=== PATIENT | male | born 1955 | race Caucasian/White ===

== ENCOUNTER → 2021-12-31 | Outpatient (CLI) | payer BC ==
[~2021-12-31] MED LIST: ASPIRIN EC81 MG PO; CENTRUM SILVER1 EAC1 PO; COZAAR50 MG PO; JANUVIA100 MG PO; LIDODERM PATCH 51 EA TOP; LIPITOR20 MG PO; PERCOCET 10-321 EACH PO; PRILOSEC20 MG PO; SYNTHROID75 MCG PO; TOPROL XL50 MG PO; XARELTO10 MG PO; ZYLOPRIM300 MG PO
== END ==
LOC: KOH-I 13:45
DX: M75.121 Complete rotator cuff tear or rupture of right shoulder, not specified as traumatic (principal); M19.011 Primary osteoarthritis, right shoulder; S43.431A Superior glenoid labrum lesion of right shoulder, initial encounter
CPT/HCPCS: 73221

== ENCOUNTER → 2022-01-12 | Outpatient (CLI) | payer BC ==
[~2022-01-12] VITALS: Ht 180.3 cm; Wt 126.6 kg
[~2022-01-12] MED LIST changes: +AMLODIPINE BES2.5 MG PO; +AVODART0.5 MG PO; +CYANOCOBAL1000 MCG/1 INJ; +DOXYCYCLINE MO100 MG PO; +GABAPENTIN400 MG PO; +JARDIANCE25 MG PO; +NITROGLYCERIN0.4 MG SL; +PROTONIX40 MG PO; +Vitamin D3; +Zinc
[2022-01-12 10:31] LABS: HEMOGLOBIN 15.5 gm/dl (14.0-17.5); RED BLOOD COUNT 5.35 M/UL (4.20-5.50); WHITE BLOOD COUNT 10.3 K/UL (4.5-11.0)
[2022-01-12 11:08] LABS: BUN/CREATININE RATIO 25 (0-10)
== END ==
LOC: EDSTATUS 08:00 → OPSV2 08:00
PROVIDERS: Orthopaedic Surgery
DX: Z01.818 Encounter for other preprocedural examination (principal); M75.101 Unspecified rotator cuff tear or rupture of right shoulder, not specified as traumatic
CPT/HCPCS: 36415; 71046; 80053; 85025; 93005

== ENCOUNTER → 2022-01-15 | Outpatient (CLI) | payer BC ==
[2022-01-15 14:29] LABS: BUN/CREATININE RATIO 24 (0-10)
== END ==
LOC: LAB 13:52
PROVIDERS: Orthopaedic Surgery
DX: Z01.812 Encounter for preprocedural laboratory examination (principal)
CPT/HCPCS: 36415; 80048; 86850; 86900; 86901

== ENCOUNTER → 2022-01-15 | Outpatient (CLI) | payer BC | LOC: EMI 14:20 | DX: M75.102 Unspecified rotator cuff tear or rupture of left shoulder, not specified as traumatic (principal); M62.512 Muscle wasting and atrophy, not elsewhere classified, left shoulder | CPT/HCPCS: 73221 ==

== ENCOUNTER → 2022-01-16 | Day surgery (SDC) | payer BC | END | disposition home or self-care (01) | LOC: OR 05:36 | DX: M75.101 Unspecified rotator cuff tear or rupture of right shoulder, not specified as traumatic (principal); M19.011 Primary osteoarthritis, right shoulder; M25.711 Osteophyte, right shoulder; M75.41 Impingement syndrome of right shoulder; I10 Essential (primary) hypertension; R73.03 Prediabetes; M10.9 Gout, unspecified; K21.9 Gastro-esophageal reflux disease without esophagitis; Z85.828 Personal history of other malignant neoplasm of skin | CPT/HCPCS: 73020; 82962; C1713; C1776; J0690; J1100; J1170; J1885; J2001; J2250; J2405; J2704; J2710; J2795; J3010; J7030 ==